=== PATIENT | male | born 1980 | race African-American/Black ===

== ENCOUNTER 2016-09-08 21:58 | Emergency (ER) | payer MEDICAID ==
[~2016-09-08] VITALS: Ht 182.9 cm; Wt 81.0 kg
[2016-09-09] MEDS ORDERED: KETOROLAC 60MG/2ML VIAL IM ONE
[2016-09-09 00:15] VITALS: BP 122/74
== END 2016-09-09 00:45 | disposition home or self-care (01) ==
LOC: ER 22:25
DX: K40.90 Unilateral inguinal hernia, without obstruction or gangrene, not specified as recurrent (principal); F12.10 Cannabis abuse, uncomplicated
CPT/HCPCS: 96372; 99283; J1885

== ENCOUNTER 2017-03-08 12:43 | Emergency (ER) | payer MEDICAID ==
[~2017-03-08] VITALS: Ht 185.4 cm; Wt 84.0 kg
[2017-03-08 13:26] VITALS: BP 127/69
[2017-03-08] MEDS ORDERED: AZITHROMYCIN 500 MG TABLET PO ONE (15:00)
[2017-03-08] MEDS ORDERED: CEFTRIAXONE SODIUM 250 MG/VIAL IM ONE (15:00)
[2017-03-08] MEDS ORDERED: LIDOCAINE HCL 1% 20ML VIAL (Pyxis) INJ INFIL ONE (15:30)
[2017-03-08 15:51] LABS: CLARITY URINE CLEAR (CLEAR); COLOR URINE YELLOW (YELLOW); GLUCOSE URINE NEGATIVE (NEGATIVE); KETONES URINE NEGATIVE (NEGATIVE); LEUKOCYTE ESTERASE URINE 2+ (NEGATIVE); NITRITE URINE NEGATIVE (NEGATIVE); OCCULT BLOOD URINE NEGATIVE (NEGATIVE); PH URINE 6.5 (4.5-8.0); PROTEIN URINE NEGATIVE (NEGATIVE); SPECIFIC GRAVITY URINE 1.022 (1.005-1.030)
== END 2017-03-08 16:21 | disposition home or self-care (01) ==
LOC: ER 13:14
DX: A64 Unspecified sexually transmitted disease (principal); N48.1 Balanitis; F12.10 Cannabis abuse, uncomplicated; F17.200 Nicotine dependence, unspecified, uncomplicated
CPT/HCPCS: 81001; 96372; 99283; J0696; J3490